=== PATIENT | male | born 1950 | race Asian ===

== ENCOUNTER 2018-10-29 16:30 | Emergency (ER) | payer OTHER ==
[2018-10-29] MEDS: ONDANSETRON (ODT) 4 MG TAB ODT (19:39)
[2018-10-29] MEDS: morphine 4 MG/ML VIAL IM (19:40)
[2018-10-29] MEDS: LIDOCAINE 2%/EPI (MDV) 20ML INJ INJ (20:41)
[2018-10-29] MEDS: DIPHTH/TET/ACEL PERTUSS (ADULT) 0.5 ML VIAL IM* (21:29)
== END 2018-10-29 22:08 | disposition home or self-care (01) ==
LOC: FTE 16:30
DX: S41.011A Laceration without foreign body of right shoulder, initial encounter (principal); I10 Essential (primary) hypertension; F17.210 Nicotine dependence, cigarettes, uncomplicated; W31.1XXA Contact with metalworking machines, initial encounter; Y92.89 Other specified places as the place of occurrence of the external cause; Z23 Encounter for immunization
CPT/HCPCS: 12002; 73030-RT; 73060-RT; 90471; 90715; 96372; 99284-25

== ENCOUNTER 2018-11-01 18:39 | Emergency (ER) | payer OTHER | END 2018-11-01 21:02 | disposition home or self-care (01) | LOC: FTE 18:39 | DX: Z48.01 Encounter for change or removal of surgical wound dressing (principal); I10 Essential (primary) hypertension; F17.210 Nicotine dependence, cigarettes, uncomplicated | CPT/HCPCS: 99283 ==